=== PATIENT | female | born 1935 | race Caucasian/White ===

== ENCOUNTER 2022-09-18 17:35 | Emergency (ER) | payer MEDICARE ==
[2022-09-18 19:14] VITALS: RESP 16
[2022-09-18] MEDS ORDERED: LORazepam 2 MG/ML INJ IV STA (19:15)
--- NOTE | 2022-09-18 19:20 | ED ---
General Adult HPI - General Source: patient, family, RN notes reviewed Mode of arrival: wheelchair Limitations: no limitations <Mauricio Obregon - Last Filed: 09/18/22 20:27> - General Source: RN notes reviewed, old records reviewed, Caregiver - History of Present Illness -: days(s) Consistency: constant Improves with: none Worsens with: none Associated Symptoms: malaise, weakness Treatments Prior to Arrival: none <Be De La Garza - Last Filed: 09/18/22 23:24> - General Chief complaint: Back Pain/Injury Stated complaint: anxiety Time Seen by Provider: 09/18/22 18:58 - History of Present Illness Initial comments: Patient is a pleasant 86-year-old female presenting to the emergency department with family with concerns for anxiety. The patient had a panic attack and still feels anxious. Patient does have history of back pain over the past several months. Patient is also had 3 falls with a past several months. One was from tripping. Patient admits to feeling anxious still at this time. No isolated area of weakness. No new incontinence or retention of bowel or bladde r. Patient has been seen at different facility for this previously out of town. No chest or abdominal pain. (Mauricio Obregon) - Related Data Allergies Allergy/AdvReac Type Severity Reaction Status Date / Time No Known Allergies Allergy Verified 09/18/22 18:34 Review of Systems ROS Other: All systems not noted in ROS Statement are negative. Constitutional: Denies: fever Eyes: Denies: eye pain ENT: Denies: ear pain Respiratory: Denies: cough Cardiovascular: Denies: chest pain Endocrine: Reports: fatigue Gastrointestinal: Denies: abdominal pain Genitourinary: Denies: dysuria Musculoskeletal: Reports: as per HPI, back pain Skin: Denies: rash Neurological: Reports: weakness (Patient feels generally weak) <Mauricio Obregon - Last Filed: 09/18/22 20:27> ROS Other: All systems not noted in ROS Statement are negative. <Be De La Garza - Last Filed: 09/18/22 23:24> ROS Statement: Those systems with pertinent positive or pertinent negative responses have been documented in the HPI. Past Medical History Past Medical History: Coronary Artery Disease (CAD), Chest Pain / Angina, Hyperlipidemia, Hypertension Additional Past Medical History / Comment(s): Kidney, Hernia History of Any Multi-Drug Resistant Organisms: None Reported Past Psychological History: No Psychological Hx Reported Smoking Status: Never smoker Past Alcohol Use History: None Reported Past Drug Use History: None Reported <Mauricio Obregon Filed: 09/18/22 20:27> General Exam Limitations: no limitations General appearance: alert, in no apparent distress, anxious Head exam: Present: normocephalic Eye exam: Present: normal appearance, PERRL, EOMI Neck exam: Present: normal inspection. Absent: tenderness, meningismus Respiratory exam: Present: normal lung sounds bilaterally Cardiovascular Exam: Present: regular rate, normal rhythm GI/Abdominal exam: Present: soft. Absent: distended, tenderness Extremities exam: Present: normal inspection, full ROM. Absent: tenderness Back exam: Present: normal inspection. Absent: tenderness Neurological exam: Present: alert, CN II-XII intact. Absent: motor sensory deficit Expanded Neurological exam: Present: protecting the airway Speech: Present: fluid speech Cranial nerves: EOM's Intact: Normal Motor strength exam: RUE: 5, LUE: 5, RLE: 5, LLE: 5 Eye Response: (4) open spontaneously Motor Response: (6) obeys commands Verbal Response: (5) oriented Psychiatric exam: Present: anxious Skin exam: Present: normal color <Mauricio Obregon Last Filed: 09/18/22 20:27> General appearance: alert, in no apparent distress Head exam: Present: atraumatic, normocephalic, normal inspection Eye exam: Present: normal appearance, PERRL, EOMI. Absent: scleral icterus, conjunctival injection, periorbital swelling ENT exam: Present: normal exam, mucous membranes moist Neck exam: Present: normal inspection. Absent: tenderness, meningismus, lymphadenopathy Respiratory exam: Present: normal lung sounds bilaterally. Absent: respiratory distress, wheezes, rales, rhonchi, stridor Cardiovascular Exam: Present: regular rate, normal rhythm, normal heart sounds. Absent: systolic murmur, diastolic murmur, rubs, gallop, clicks GI/Abdominal exam: Present: soft, normal bowel sounds. Absent: distended, tenderness, guarding, rebound, rigid Extremities exam: Present: normal inspection, full ROM, normal capillary refill. Absent: tenderness, pedal edema, joint swelling, calf tenderness Back exam: Present: normal inspection Neurological exam: Present: alert, oriented X3, CN II-XII intact Psychiatric exam: Present: normal affect, normal mood Skin exam: Present: warm, dry, intact, normal color. Absent: rash <Be De La Garza - Last Filed: 09/18/22 23:24> Course <Be De La Garza - Last Filed: 09/18/22 23:24> Vital Signs 09/18/22 09/18/22 09/18/22 18:29 19:13 22:05 Temperature 98.3 F 98.6 F 98.6 F Pulse Rate 74 77 73 Respiratory 20 16 16 Rate Blood Pressure 201/89 180/89 131/108 O2 Sat by Pulse 99 98 97 Oximetry - Reevaluation(s) Reevaluation #1: 09/18/22 22:16 Medical records reviewed (Be De La Garza) Reevaluation #2: 09/18/22 23:23 Spoke with patient at length, she is very happy with findings here in the ER feels okay going home (Be De La Garza) EKG Findings - EKG Results: EKG: interpreted by ERMD (Neuro complex regular rhythm with a rate of 67. Normal axis. LVH criteria. No acute ST change.), normal axis, normal ST/T <Mauricio Obregon - Last Filed: 09/18/22 20:27> Medical Decision Making <Mauricio Obregon - Last Filed: 09/18/22 20:27> - Lab Data Result diagrams: 09/18/22 20:23 09/18/22 20:23 - Radiology Data Radiology results: report reviewed (Chest and spine x-rays are negative for traumatic injury), image reviewed <Be De La Garza - Last Filed: 09/18/22 23:24> - Medical Decision Making 86 female to the emergency department for evaluation of nonspecific complaints. No cause found for patient's shaking and weakness. Patient will be discharged home to care of family (Be De La Garza) - Lab Data Lab Results 09/18/22 09/18/22 09/18/22 Range/Units 20:23 20:23 20:23 WBC 6.3 (3.8-10.6) k/uL RBC 3.97 (3.80-5.40) m/uL Hgb 12.0 (11.4-16.0) gm/dL Hct 38.5 (34.0-46.0) % MCV 96.9 (80.0-100.0) fL MCH 30.3 (25.0-35.0) pg MCHC 31.2 (31.0-37.0) g/dL RDW 13.8 (11.5-15.5) % Plt Count 125 L (150-450) k/uL MPV 11.0 Neutrophils % 66 % Lymphocytes % 19 % Monocytes % 9 % Eosinophils % 2 % Basophils % 1 % Neutrophils # 4.2 (1.3-7.7) k/uL Lymphocytes # 1.2 (1.0-4.8) k/uL Monocytes # 0.6 (0-1.0) k/uL Eosinophils # 0.1 (0-0.7) k/uL Basophils # 0.0 (0-0.2) k/uL Hypochromasia Marked Sodium 138 (137-145) mmol/L Potassium 4.9 (3.5-5.1) mmol/L Chloride 107 (98-107) mmol/L Carbon Dioxide 24 (22-30) mmol/L Anion Gap 7 mmol/L BUN 29 H (7-17) mg/dL Creatinine 1.37 H (0.52-1.04) mg/dL Est GFR (CKD-EPI)AfAm 40 (>60 ml/min/1.73 sqM) Est GFR (CKD-EPI)NonAf 35 (>60 ml/min/1.73 sqM) Glucose 98 (74-99) mg/dL Plasma Lactic Acid Tommy 0.9 (0.7-2.0) mmol/L Calcium 9.1 (8.4-10.2) mg/dL Magnesium 1.7 (1.6-2.3) mg/dL Total Bilirubin 0.5 (0.2-1.3) mg/dL AST 27 (14-36) U/L ALT 21 (4-34) U/L Alkaline Phosphatase 135 H (38-126) U/L Troponin I (0.000-0.034) ng/mL NT-Pro-B Natriuret Pep pg/mL Total Protein 6.4 (6.3-8.2) g/dL Albumin 3.9 (3.5-5.0) g/dL Urine Color Urine Appearance (Clear) Urine pH (5.0-8.0) Ur Specific [place] (1.001-1.035) Urine Protein (Negative) Urine Glucose (UA) (Negative) Urine Ketones (Negative) Urine Blood (Negative) Urine Nitrite (Negative) Urine Bilirubin (Negative) Urine Urobilinogen (<2.0) mg/dL Ur Leukocyte Esterase (Negative) Urine RBC (0-5) /hpf Urine WBC (0-5) /hpf Ur Squamous Epith Cells (0-4) /hpf 09/18/22 09/18/22 09/18/22 Range/Units 20:23 20:23 21:34 WBC (3.8-10.6) k/uL RBC (3.80-5.40) m/uL Hgb (11.4-16.0) gm/dL Hct (34.0-46.0) % MCV (80.0-100.0) fL MCH (25.0-35.0) pg MCHC (31.0-37.0) g/dL RDW (11.5-15.5) % Plt Count (150-450) k/uL MPV Neutrophils % % Lymphocytes % % Monocytes % % Eosinophils % % Basophils % % Neutrophils # (1.3-7.7) k/uL Lymphocytes # (1.0-4.8) k/uL Monocytes # (0-1.0) k/uL Eosinophils # (0-0.7) k/uL Basophils # (0-0.2) k/uL Hypochromasia Sodium (137-145) mmol/L Potassium (3.5-5.1) mmol/L Chloride (98-107) mmol/L Carbon Dioxide (22-30) mmol/L Anion Gap mmol/L BUN (7-17) mg/dL Creatinine (0.52-1.04) mg/dL Est GFR (CKD-EPI)AfAm (>60 ml/min/1.73 sqM) Est GFR (CKD-EPI)NonAf (>60 ml/min/1.73 sqM) Glucose (74-99) mg/dL Plasma Lactic Acid Tommy (0.7-2.0) mmol/L Calcium (8.4-10.2) mg/dL Magnesium (1.6-2.3) mg/dL Total Bilirubin (0.2-1.3) mg/dL AST (14-36) U/L ALT (4-34) U/L Alkaline Phosphatase (38-126) U/L Troponin I <0.012 (0.000-0.034) ng/mL NT-Pro-B Natriuret Pep 419 pg/mL Total Protein (6.3-8.2) g/dL Albumin (3.5-5.0) g/dL Urine Color Light Yellow Urine Appearance Clear (Clear) Urine pH 6.5 (5.0-8.0) Ur Specific [place] 1.010 (1.001-1.035) Urine Protein 1+ H (Negative) Urine Glucose (UA) Negative (Negative) Urine Ketones Negative (Negative) Urine Blood Negative (Negative) Urine Nitrite Negative (Negative) Urine Bilirubin Negative (Negative) Urine Urobilinogen <2.0 (<2.0) mg/dL Ur Leukocyte Esterase Negative (Negative) Urine RBC <1 (0-5) /hpf Urine WBC 2 (0-5) /hpf Ur Squamous Epith Cells 1 (0-4) /hpf - Radiology Data Interpreted by me: Two-view chest x-ray interpreted by myself reveals no acute process. Thoracic spine shows multiple mild compression fractures, likely old. No acute fracture. Lumbar spine shows mild osteoporotic compression fractures. Age unclear. (Mauricio Obregon) Disposition <Mauricio Obregon - Last Filed: 09/18/22 20:27> Is patient prescribed a controlled substance at d/c from ED?: No Time of Disposition: 23:30 <Be De La Garza - Last Filed: 09/18/22 23:24> Clinical Impression: Mechanical back pain, Weakness Disposition: HOME SELF-CARE Condition: Fair Instructions (If sedation given, give patient instructions): Weakness (ED) Referrals: Nonstaff,Physician [Primary Care Provider] - 1-2 days
--- NOTE | 2022-09-18 19:56 | XR ---
EXAMINATION TYPE: XR chest 2V DATE OF EXAM: 09/18/2022 COMPARISON: NONE HISTORY: Short of breath TECHNIQUE: 2 view FINDINGS: Heart is normal. Lungs are clear of infiltrate. No heart failure. There are no hilar masses . Costophrenic angles are clear. There is minor spurring in the thoracic spine. IMPRESSION: No active cardiopulmonary disease.
--- NOTE | 2022-09-18 19:57 | XR ---
EXAMINATION TYPE: XR thoracic spine 2V DATE OF EXAM: 09/18/2022 COMPARISON: NONE HISTORY: Abdominal breath. Dizzy. TECHNIQUE: 3 views FINDINGS: The thoracic vertebra show slight anterior wedging of multiple vertebral bodies up to 20% w ith spur formation. No definite acute fracture. There is slight increased thoracic kyphosis. No caren cary mass. Elements are intact. IMPRESSION: Multiple mild osteoporotic type thoracic compression fractures are likely old. No definit e acute fracture.
--- NOTE | 2022-09-18 20:02 | XR ---
EXAMINATION TYPE: XR lumbar spine 2 or 3V DATE OF EXAM: 09/18/2022 COMPARISON: NONE HISTORY: Short of breath. Back pain TECHNIQUE: 3 views FINDINGS: There is some osteopenia. Fairly normal alignment. There is mild disc space narrowing. There is slight loss of height of L2 ayse tebra 10%. There is also L1 and T12 mild compression tend to 15%. IMPRESSION: Mild osteoporotic compression fractures. Age is not clear.
[2022-09-18] MEDS ORDERED: LORazepam 1 MG TAB PO STA ×2 (20:12→23:24)
[2022-09-18 20:59] LABS: Albumin 3.9 g/dL (3.5-5.0); Calcium 9.1 mg/dL (8.4-10.2); Magnesium 1.7 mg/dL (1.6-2.3); Potassium 4.9 mmol/L (3.5-5.1); Total Bilirubin 0.5 mg/dL (0.2-1.3); Total Protein 6.4 g/dL (6.3-8.2)
[2022-09-18 21:07] LABS: Basophils % (A) 1 %; Eosinophils # (A) 0.1 k/uL (0-0.7); Eosinophils % (A) 2 %; HCT 38.5 % (34.0-46.0); Hypochromasia Marked; Lymphocytes # (A) 1.2 k/uL (1.0-4.8); Lymphocytes % (A) 19 %; MCH 30.3 pg (25.0-35.0); MCHC 31.2 g/dL (31.0-37.0); MCV 96.9 fL (80.0-100.0); Monocytes # (A) 0.6 k/uL (0-1.0); Monocytes % (A) 9 %; Neutrophils # (A) 4.2 k/uL (1.3-7.7); Neutrophils % (A) 66 %; RBC 3.97 m/uL (3.80-5.40); RDW 13.8 % (11.5-15.5); WBC 6.3 k/uL (3.8-10.6)
[2022-09-18 21:32] LABS: Platelet Count 125 k/uL (150-450)
[2022-09-18 21:52] LABS: Appearance,Urine Clear (Clear); Bilirubin,Urine Negative (Negative); Blood,Urine Negative (Negative); Color,Urine Light Yellow; Glucose,Urine (UA) Negative (Negative); Ketones,Urine Negative (Negative); Leukocyte Esterase,Urine Negative (Negative); Nitrite,Urine Negative (Negative); PH, Urine 6.5 (5.0-8.0); Protein,Urine 1+ (Negative); RBC,Urine <1 /hpf (0-5); Squamous Epithelial Cell,Urine 1 /hpf (0-4); Urobilinogen,Urine <2.0 mg/dL (<2.0); WBC,Urine 2 /hpf (0-5)
[2022-09-18 23:37] VITALS: BP 130/95; PULSE 78; TEMP 98.7
== END 2022-09-18 19:14 | disposition home or self-care (01) ==
LOC: EC 17:35
DX: R53.1 Weakness (principal); M54.9 Dorsalgia, unspecified; I10 Essential (primary) hypertension; I25.10 Atherosclerotic heart disease of native coronary artery without angina pectoris
CPT/HCPCS: 36415; 71046; 72070; 72100; 80053; 81001; 83605; 83735; 83880; 84484; 85025; 93005; 99284